=== PATIENT | female | born 1965 | race Caucasian/White ===

== ENCOUNTER 2017-06-25 11:27 | Emergency (ER) | payer MEDICAID, OTHER ==
[~2017-06-25] VITALS: Ht 157.5 cm; Wt 74.7 kg
[2017-06-25 11:33] VITALS: Ht 157.5 cm; Wt 74.7 kg
[2017-06-25] MEDS ORDERED: SOD CHLORIDE 0.9% 1,000 ML IV STA (13:25)
[2017-06-25] MEDS ORDERED: morphine 2 MG INJ IV STA (13:25)
[2017-06-25] MEDS ORDERED: ONDANSETRON 4 MG INJ IV STA (13:25)
--- NOTE | 2017-06-25 13:50 | ERD ---
ER Documentation Chief Complaint Chief Complaint Pt with vomiting and diarrhea X 1 day. HPI 51-year-old female, states she status post cholecystectomy 2 weeks ago comes in with a one-day history nausea, vomiting, diarrhea and mid abdominal pain. She reports 2 episodes of nonbloody nonbilious emesis and 4 episodes of loose stools , nonbloody non-mucousy. She reports mid abdominal pain that is sharp and cramping, no radiation up into the right upper quadrant and back. She denies chest pain or shortness breath. She denies fevers or chills. ROS All systems reviewed and are negative except as per history of present illness. Medications Home Meds Active Scripts Ranitidine Hcl* (Ranitidine Hcl*) 150 Mg Tablet, 150 MG PO Q12, #30 TAB Prov:MACEY STOLL PA-C 06/25/17 Dicyclomine Hcl* (Bentyl*) 10 Mg Capsule, 10 MG PO QID, #20 CAP Prov:MACEY STOLL PA-C 06/25/17 Ondansetron (Ondansetron Odt) 4 Mg Tab.rapdis, 4 MG PO Q6H Y for NAUSEA AND/OR VOMITING, #10 TAB Prov:MACEY STOLL PA-C 06/25/17 Allergies Allergies: Coded Allergies: No Known Allergy (Unverified , 06/25/17) PMhx/Soc History of Surgery: Yes (Gallbaldder removal) Anesthesia Reaction: No Hx Neurological Disorder: No Hx Respiratory Disorders: No Hx Cardiac Disorders: No Hx Psychiatric Problems: No Hx Miscellaneous Medical Probl: No Hx Alcohol Use: No Hx Substance Use: No Hx Tobacco Use: No Smoking Status: Never smoker Physical Exam Vitals Vital Signs Date Time Temp Pulse Resp B/P Pulse Ox O2 Delivery O2 Flow Rate FiO2 06/25/17 11:33 98.1 86 18 132/72 96 Physical Exam General: Well-developed, well-nourished. The patient appears in no acute distress. HEENT: Head is normocephalic, atraumatic. No scleral icterus. Neck: Supple. Nontender. Lungs: Clear to auscultation. Normal air movement. Heart: Regular rate and rhythm. S1 and S2 are normal. No murmurs, gallops, or rubs. Abdomen: Soft, scar from recent cholecystectomy, the patient has been abdominal tenderness, no guarding, no masses, no peritoneal signs, no hepatosplenomegaly, nondistended. Bowel sounds are normoactive. Extremities: No clubbing or cyanosis. Normal pulses. Moving extremities x 4. No weakness. Neurologic: Alert and oriented 3. No focal deficits. Skin: Normal turgor. No rash or lesions. Result Diagram: 06/25/17 1348 06/25/17 1348 Results 24 hrs Laboratory Tests Test 06/25/17 13:48 06/25/17 16:05 White Blood Count 5.910^3/ul Red Blood Count 5.1010^6/ul Hemoglobin 15.9g/dl Hematocrit 48.3% Mean Corpuscular Volume 94.7fl Mean Corpuscular Hemoglobin 31.2pg Mean Corpuscular Hemoglobin Concent 32.9g/dl Red Cell Distribution Width 12.7% Platelet Count 72524^3/UL Mean Platelet Volume 11.1fl Neutrophils % 62.7% Lymphocytes % 22.9% Monocytes % 9.5% Eosinophils % 3.9% Basophils % 0.7% Nucleated Red Blood Cells % 0.0/100WBC Neutrophils # 3.710^3/ul Lymphocytes # 1.410^3/ul Monocytes # 0.610^3/ul Eosinophils # 0.210^3/ul Basophils # 0.010^3/ul Nucleated Red Blood Cells # 0.010^3/ul Sodium Level 142mmol/L Potassium Level 3.8mmol/L Chloride Level 103mmol/L Carbon Dioxide Level 25mmol/L Anion Gap 18 Blood Urea Nitrogen 12mg/dl Creatinine 0.78mg/dl Glucose Level 96mg/dl Calcium Level 10.0mg/dl Total Bilirubin 0.4mg/dl Direct Bilirubin 0.00mg/dl Indirect Bilirubin 0.4mg/dl Aspartate Amino Transf (AST/SGOT) 26IU/L Alanine Aminotransferase (ALT/SGPT) 39IU/L Alkaline Phosphatase 90IU/L Total Protein 8.1g/dl Albumin 4.4g/dl Globulin 3.70g/dl Albumin/Globulin Ratio 1.18 Lipase 64U/L Bedside Urine pH (LAB) 5.0 Bedside Urine Protein (LAB) Negative Bedside Urine Glucose (UA) Negative Bedside Urine Ketones (LAB) Negative Bedside Urine Blood 2+ Bedside Urine Nitrite (LAB) Negative Bedside Urine Leukocyte Esterase (L Negative Current Medications Medications (Trade) Dose Ordered Sig/Chandra Route PRN Reason Start Time Stop Time Status Last Admin Dose Admin Sodium Chloride (NS) 1,000 ml @ 1,000 mls/hr Q1H STAT IV 06/25/17 13:25 06/25/17 14:24 DC 06/25/17 13:54 Morphine Sulfate (morphine) 2 mg ONCE STAT IV 06/25/17 13:25 06/25/17 13:27 DC Ondansetron HCl (Zofran Inj) 4 mg ONCE STAT IV 06/25/17 13:25 06/25/17 13:27 DC IV Flush 10 ml 10 ml STK-MED ONCE .ROUTE 06/25/17 14:57 06/25/17 14:58 DC 06/25/17 15:28 Sodium Chloride (NS) 100 ml @ ud STK-MED ONCE .ROUTE 06/25/17 14:57 06/25/17 14:58 DC 06/25/17 15:29 Iohexol (Omnipaque 300mg/ ml) 150 ml STK-MED ONCE .ROUTE 06/25/17 14:57 06/25/17 14:58 DC 06/25/17 15:29 Patient: CHRISTELLE TAM : 1965 Age: 51 Sex: F MR #: [id number] DOS: 06/25/17 1325 Ordering MD: MACEY STOLL PA-C Location: [facility] Room/Bed: PROCEDURE: CT ABDOMEN AND PELVIS WITH IV CONTRAST. CLINICAL INDICATION: Vomiting with abdominal pain TECHNIQUE: CT scan of the abdomen and pelvis without contrast was performed on a multidetector high-resolution CT scanner following the use of IV contrast. 100 cc Omnipaque-300 was administered. Coronal and sagittal reformatted images were obtained from the axial source images. Images were reviewed on a high- resolution PACS workstation. The total exam CTDI equals 16.4 mGy and the total exam DLP equals 875 mGy-cm. One or more of the following dose reduction techniques were used: Automated exposure control. Adjustment of the mA and/or kV according to patient size. Use of iterative reconstruction technique. DICOM images are available. COMPARISON: None FINDINGS: CT abdomen: The lung bases are clear. The heart size is within normal limits. There is no significant pericardial effusion. Hepatic morphology is within limits. No gross masses or lesions. Status post cholecystectomy. Trace amount of fat stranding is noted, likely consistent with postsurgical changes. The spleen and pancreas are within normal limits. Both adrenal glands are within normal limits. Both kidneys are in normal anatomic position. No evidence of obstruction or hydronephrosis. No gross renal/ureteric calculi. The visualized GI tract demonstrate normal caliber loops of small and large bowel. No evidence of bowel obstruction. The appendix is within normal limits. The aorta is unremarkable. Several shoddy retroperitoneal lymph nodes are identified. Periumbilical right-sided abdominal wall subcutaneous air CT pelvis: The bladder is within normal limits. The uterus is retroverted. The rectosigmoid colon is within normal limits. No significant free fluid. No significant pelvic lymphadenopathy. The visualized osseous structures appears to be within normal limits. IMPRESSION: 1. No evidence of acute intra-abdominal/pelvic inflammatory process. No evidence of bowel obstruction. 2. Status post cholecystectomy. Small amount of fat stranding within the gallbladder fossa, likely consistent with postsurgical changes. 3. Periumbilical and right sided abdominal subcutaneous air, likely related to history of recent surgery. 4. No evidence of free fluid or free air. No gross focal fluid collections. Otherwise, the remainder of the CT scan abdomen/pelvis is unremarkable. RPTAT: AAPP Physician Oswaldo Date Time Electronically viewed and signed by Physician Oswaldo on 06/25/2017 15:38 JL/ CC: MACEY STOLL PA-C Procedures/[facility] ED COURSE: Patient had IV line established, labs and urine were obtained. The patient was given morphine 2 mg, Zofran 4 mg intravenously saline IV. [employer] DECISION MAKIN-year-old female, states she had a cholecystectomy 2 weeks ago comes in with mid abdominal pain, vomiting, diarrhea. Her abdominal examination shows an abdominal tenderness that is localized, no peritoneal signs or guarding. Differential diagnosis includes bowel obstruction, postop infection, bowel perforation, retained stone among others. Blood work shows no leukocytosis, no abnormal LFTs, lipase or bilirubin. Her symptoms are most consistent with a viral process, she has had one day of nausea, vomiting and diarrhea that is most likely gastroenteritis. There is no evidence of diverticulitis, intra- abdominal abscess or surgical process. Her pain was controlled with morphine and 1 dose of 2 mg of Zofran as well as her nausea. She is resting comfortably early and serial abdominal examinations show the patient is free of any pain at this time. Urine was negative for infection, and the patient is stable for discharge. Departure Diagnosis: Primary Impression: Nausea vomiting and diarrhea Condition: MACEY Yeung PA-C Jun 25, 2017 13:50
[2017-06-25 14:32] LABS: BASOPHILS % 0.7 % (0.0-2.0); EOSINOPHILS # 0.2 10^3/ul (0.0-0.5); EOSINOPHILS % 3.9 % (0.0-7.0); HEMATOCRIT 48.3 % (37.0-47.0); HEMOGLOBIN 15.9 g/dl (12.0-16.0); LYMPHOCYTES # 1.4 10^3/ul (0.8-2.9); LYMPHOCYTES % 22.9 % (15.0-51.0); MEAN CORPUSCULAR HEMOGLOBIN 31.2 pg (29.0-33.0); MEAN CORPUSCULAR HGB CONC 32.9 g/dl (32.0-37.0); MEAN CORPUSCULAR VOLUME 94.7 fl (82.0-101.0); MEAN PLATELET VOLUME 11.1 fl (7.4-10.4); MONOCYTE # 0.6 10^3/ul (0.3-0.9); MONOCYTES % 9.5 % (0.0-11.0); NEUTROPHIL # 3.7 10^3/ul (1.6-7.5); NEUTROPHILS % 62.7 % (39.0-77.0); PLATELET COUNT 387 10^3/UL (140-415); RED CELL DISTRIBUTION WIDTH 12.7 % (11.5-14.5); WHITE BLOOD COUNT 5.9 10^3/ul (4.8-10.8)
[2017-06-25 14:50] LABS: ALBUMIN 4.4 g/dl (3.3-4.9); ALBUMIN/GLOBULIN RATIO 1.18; BILIRUBIN,INDIRECT 0.4 mg/dl (0-1.1); BILIRUBIN,TOTAL 0.4 mg/dl (0.2-1.3); CREATININE 0.78 mg/dl (0.44-1.00); POTASSIUM 3.8 mmol/L (3.5-5.1); TOTAL PROTEIN 8.1 g/dl (6.1-8.1)
[2017-06-25] MEDS ORDERED: IOHEXOL 300MG/ML 150 ML BTL ONE (14:57)
[2017-06-25] MEDS ORDERED: SOD CHLORIDE 0.9% 100 ML ONE (14:57)
--- NOTE | 2017-06-25 15:39 | RADRPT ---
PROCEDURE: CT ABDOMEN AND PELVIS WITH IV CONTRAST. CLINICAL INDICATION: Vomiting with abdominal pain TECHNIQUE: CT scan of the abdomen and pelvis without contrast was performed on a multidetector hig h-resolution CT scanner following the use of IV contrast. 100 cc Omnipaque-300 was administered. Cor onal and sagittal reformatted images were obtained from the axial source images. Images were reviewe d on a high-resolution PACS workstation. The total exam CTDI equals 16.4 mGy and the total exam DLP equals 875 mGy-cm. One or more of the following dose reduction techniques were used: Automated exposure control. Adjustment of the mA and/or kV according to patient size. Use of iterative reconstruction technique. DICOM images are available. COMPARISON: None FINDINGS: CT abdomen: The lung bases are clear. The heart size is within normal limits. There is no significant pericardia l effusion. Hepatic morphology is within limits. No gross masses or lesions. Status post cholecystectomy. Trace amount of fat stranding is noted, likely consistent with postsurgical changes. The spleen and pancreas are within normal limits. Both adrenal glands are within normal limits. Both kidneys are in normal anatomic position. No evidence of obstruction or hydronephrosis. No gross renal/ureteric calculi. The visualized GI tract demonstrate normal caliber loops of small and large bowel. No evidence of lorin wel obstruction. The appendix is within normal limits. The aorta is unremarkable. Several shoddy retroperitoneal lymph nodes are identified. Periumbilical right-sided abdominal wall subcutaneous air CT pelvis: The bladder is within normal limits. The uterus is retroverted. The rectosigmoid colon is within nor mal limits. No significant free fluid. No significant pelvic lymphadenopathy. The visualized osseous structures appears to be within normal limits. IMPRESSION: 1. No evidence of acute intra-abdominal/pelvic inflammatory process. No evidence of bowel obstructio n. 2. Status post cholecystectomy. Small amount of fat stranding within the gallbladder fossa, likely c onsistent with postsurgical changes. 3. Periumbilical and right sided abdominal subcutaneous air, likely related to history of recent milly nam. 4. No evidence of free fluid or free air. No gross focal fluid collections. Otherwise, the remainder of the CT scan abdomen/pelvis is unremarkable. RPTAT: AAPP Rimma Reeder, Physician Date Time Electronically viewed and signed by Rimma Reeder, Physician on 06/25/2017 15:38 JL/
[2017-06-25 16:04] LABS: URINE BLOOD (Dip) POC 2+ (NEGATIVE)
[2017-06-25] MEDS ORDERED: DICY10CA60 PO (16:09)
[2017-06-25] MEDS ORDERED: ONDA4TAB14 PO (16:09)
[2017-06-25] MEDS ORDERED: RANI150T5 PO (16:09)
== END 2017-06-25 16:32 | disposition home or self-care (01) ==
LOC: FTE 11:27
DX: R11.2 Nausea with vomiting, unspecified (principal); R19.7 Diarrhea, unspecified
CPT/HCPCS: 74177; 80053; 81003; 83690; 85025; J7030; Q9967; Z7610; 36415